=== PATIENT | female | born 1985 | race Caucasian/White ===

== ENCOUNTER 2017-06-29 09:04 | Emergency (ER) | payer OTHER, SELFPAY ==
[2017-06-29 09:05] VITALS: BP 108/75; PULSE 71; RESP 18; TEMP 37; O2SAT 100; BMI 34.9
--- NOTE | 2017-06-29 09:51 | ED.ABDPAIN ---
HPI - Abdominal Pain General Chief Complaint: Abdominal Pain Stated Complaint: IUD MISPLACED Time Seen by Provider: 06/29/17 09:18 Source: patient and family Mode of arrival: ambulatory Limitations: no limitations History of Present Illness HPI narrative: 32F hx fibromyalgia has sharp pelvic pain for 1 day. Has IUD in place, had intercourse night prior and felt a very sharp pain and since then has had persistent severe pelvic pain worse with walking, moving. No vaginal bleeding or significant discharge. States that normally able to feel string, but after event was unable to. No nausea, vomiting. Related Data Home Medications Medication Instructions Recorded Confirmed ibuprofen 400 mg PO Q6-8H PRN 06/29/17 06/29/17 pregabalin [Lyrica] See Label Instructions .ROUTE 06/29/17 06/29/17 .COMPLEX Allergies Allergy/AdvReac Type Severity Reaction Status Date / Time Penicillins [PENICILLINS] Allergy Intermediate Hives Verified 06/29/17 09:27 Review of Systems Constitutional Denies chills, Denies fever(s), Denies lethargy and Denies weakness Cardiovascular Denies chest pain, Denies irregular heart rhythm, Denies lightheadedness, Denies palpitations, Denies dyspnea, Denies dyspnea on exertion and Denies orthopnea Respiratory Denies cough, Denies dyspnea, Denies dyspnea on exertion and Denies wheezing Gastrointestinal Gastrointestinal: Denies abdominal pain, Denies change in bowel habits, Denies diarrhea, Denies nausea and Denies vomiting Genitourinary Denies abnormal vaginal bleeding and Reports pelvic pain Neurologic Denies weakness Endocrine Denies palpitations Allergic/Immunologic Denies wheezing [facility] Social History Smoking Status: Never smoker Exam Initial Vital Signs Initial Vital Signs: Vital Signs Temperature 98.6 F 06/29/17 09:05 Pulse Rate 71 06/29/17 09:05 Respiratory Rate 18 06/29/17 09:05 Blood Pressure 108/75 06/29/17 09:05 Pulse Oximetry 100 06/29/17 09:05 Const General: cooperative and well developed Nutritional Appearance: well nourished Orientation: alert, awake, oriented x3 and not confused Neck Neck: normal visual inspection, trachea midline, No lymphadenopathy, No midline deformity and No JVD Lymphatic: No lymphedema Chest Chest: normal inspection of the chest Resp Effort & Inspection: normal respiratory effort, able to speak in complete sentences, no respiratory distress and no use of accessory muscles Auscultation: clear to auscultation bilaterally, no rales, no rhonchi and no wheezes Cardio Rate: regular rate Rhythm: regular rhythm Heart Sounds: no click, no gallops, no murmurs and no rubs Pulses: normal peripheral pulses GI Inspection: non-distended Palpation: soft, no hepatosplenomegaly, guarding, No pulsatile mass and tender (suprapubic severe tenderness with rebound tenderness) Auscultation: normal bowel sounds Rectal Exam: visual inspection normal External Female Exam: external appearance normal Speculum Exam - Vagina: normal appearance of the vagina, normal vaginal discharge and other (IUD string tucked into cervix) Speculum Exam - Cervix: cervical tenderness Bimanual Exam- Vagina & Uterus: cervical tenderness Neuro General: alert, oriented x3, gait normal and no focal motor deficits Speech: speech normal Course Orders Ordered: ED Orders 06/29/17 09:51 US pelvic complete Stat 06/29/17 10:44 Complete Blood Count AUTO DIFF Stat Comprehensive Metabolic Panel Stat Partial Thromboplastin Time Stat Test Serum,Qual Stat Prothrombin Time INR Stat Discontinued Medications Sodium Chloride (Normal Saline 0.9%) 1,000 mls @ 1,000 mls/hr IV BOLUS ONE Stop: 06/29/17 10:51 Last Infusion: 06/29/17 12:29 Dose: 0 mls/hr Admin: 06/29/17 10:32 Dose: 1,000 mls/hr Oxycodone/Acetaminophen (Percocet 5/325) 1 tab PO NOW ONE Stop: 06/29/17 10:00 Last Admin: 06/29/17 10:33 Dose: 1 tab Vital Signs - 8 hr 06/29/17 09:05 06/29/17 11:06 06/29/17 12:11 Temperature 98.6 F Pulse Rate 71 67 65 Respiratory Rate 18 14 12 Blood Pressure 108/75 Blood Pressure [Right Arm] 106/71 105/68 Pulse Oximetry 100 99 100 MDM - Abdominal Pain Lab Data Result diagrams: 06/29/17 10:44 06/29/17 10:44 Lab Results 06/29/17 06/29/17 06/29/17 Range/Units 10:44 10:44 10:44 WBC 5.9 (4.5-11.0) X10^3/uL RBC 4.89 (4.0-5.2) X10^6/uL Hgb 13.9 (12.0-16.0) g/dL Hct 40.7 (36-46) % MCV 83.3 (80-100) fL MCH 28.3 (26-34) PG MCHC 34.0 (30-36) % RDW 14.2 (11.6-14.8) % Plt Count 119 L (150-400) X10^3/uL Neut % (Auto) 68.7 (50-75) % Lymph % (Auto) 22.3 L (25-40) % [place] % (Auto) 7.7 (3-14) % Eos % (Auto) 1.0 L (2-4) % Baso % (Auto) 0.3 (0-2) % Neut # (Auto) 4000 (0234-2952) /uL PT 12.1 (10.1-12.7) SECONDS INR 1.1 (0.9-1.3) APTT 29 (26.4-36.2) SECONDS Sodium 142 (137-145) mmol/L Potassium 4.1 (3.4-5.1) mmol/L Chloride 107.0 (98-107) mmol/L Carbon Dioxide 26.0 (22-32) mmol/L BUN 13.0 (7-17) mg/dL Creatinine 0.70 (0.52-1.04) mg/dL Estimated GFR > 60.0 (>60) mL/min BUN/Creatinine Ratio 18.6 (6-22) Glucose 96 (70-100) mg/dL Calcium 8.9 (8.4-10.2) mg/dL Total Bilirubin 0.5 (0.2-1.3) mg/dL AST 77 H (14-36) IU/L ALT 27 (9-52) IU/L Alkaline Phosphatase 49 (38-126) U/L Total Protein 6.8 (6.3-8.2) g/dL Albumin 4.0 (3.5-5.0) g/dL Globulin 2.8 (1.7-4.1) g/dL Albumin/Globulin Ratio 1.4 (1.0-2.8) Serum , Qual (Negative) 06/29/17 Range/Units 10:44 WBC (4.5-11.0) X10^3/uL RBC (4.0-5.2) X10^6/uL Hgb (12.0-16.0) g/dL Hct (36-46) % MCV (80-100) fL MCH (26-34) PG MCHC (30-36) % RDW (11.6-14.8) % Plt Count (150-400) X10^3/uL Neut % (Auto) (50-75) % Lymph % (Auto) (25-40) % [place] % (Auto) (3-14) % Eos % (Auto) (2-4) % Baso % (Auto) (0-2) % Neut # (Auto) (8436-9213) /uL PT (10.1-12.7) SECONDS INR (0.9-1.3) APTT (26.4-36.2) SECONDS Sodium (137-145) mmol/L Potassium (3.4-5.1) mmol/L Chloride (98-107) mmol/L Carbon Dioxide (22-32) mmol/L BUN (7-17) mg/dL Creatinine (0.52-1.04) mg/dL Estimated GFR (>60) mL/min BUN/Creatinine Ratio (6-22) Glucose (70-100) mg/dL Calcium (8.4-10.2) mg/dL Total Bilirubin (0.2-1.3) mg/dL AST (14-36) IU/L ALT (9-52) IU/L Alkaline Phosphatase (38-126) U/L Total Protein (6.3-8.2) g/dL Albumin (3.5-5.0) g/dL Globulin (1.7-4.1) g/dL Albumin/Globulin Ratio (1.0-2.8) Serum , Qual Negative (Negative) Imaging Data US - abdomen: Radiologist's impression: Patient: Isadora FARMER RMR#: [id number] : 1985Acct:[id number] Age/Sex: te of Service: 06/29/17 Loc: ED Accession Number: [id number] Procedure: US pelvic complete Ordering Provider: Bisi Christian M.D. PROCEDURE: US PELVIC COMPLETE INDICATIONS: PAIN; CHECK IUD PLACEMENT TECHNIQUE: Real-time scanning was performed of the pelvic organs, with image documentation. Additional endovaginal scanning was necessary due to incomplete visualization of the adnexal and endometrial structures by transabdominal scanning. COMPARISON: None. FINDINGS: Transabdominal scanning: Limited scanning through the kidneys shows no hydronephrosis. Complex free fluid is noted in the pelvis adjacent to the right adnexa. Endovaginal scanning: Uterus: Uterus is normal in size at 10.1 x 4.3 x 6.5 cm. cm. The endometrium measures 11.1 mm in combined thickness. Intrauterine device is suboptimally visualized. Intrauterine device appears grossly normal in position. Ovaries: Right adnexa measures 6.7 x 5.6 x 5.6 cm. There is a complex 5.5 x 5.0 x 5.1 cm right adnexal mass. Lesion has a 4.9 x 3.1 x 4.5 cm solid component. Doppler evaluation demonstrates no definite vascularity within the solid component. The may represent hemorrhagic clot. Left adnexal is not visualized and cannot be evaluated. IMPRESSION: 1. Intrauterine device noted. Intrauterine device is suboptimally visualized, but is grossly normal in appearance. 2. Complex 5.5 x 5.0 x 5.1 cm right adnexal mass may represent hemorrhagic clot, however finding is nonspecific and other etiologies including endometrioma and ectopic cannot be completely excluded. Recommend correlation with test and repeat pelvic ultrasound in 4 days 6 weeks to ensure resolution of the finding. 3. Small amount of complex fluid in the lower pelvis adjacent to right adnexa concerning for hemorrhage. 4. Left adnexa not visualized and cannot be evaluated. Dictated by: Lucinda Chaudhary MD, PhD on 06/29/2017 at 10:08 Approved by: Lucinda Chaudhary MD, PhD on 06/29/2017 at 10:14 [facility] Narrative Medical decision making narrative: Patient signficantly tender in pelvic area. Bedside US performed, no significant amount of free fluid. IUD appears midline in uterus. No free fluid in RUQ or LUQ Speculum exam showed tucked in strings. Used hemostat to reposition strings. Sent patient to Radiology for comprehensive US. US positive for hemorrhagic cyst with small amount of bleeding. Discussed results with patient and she stated that she does have a history of hemorrhagic cysts. Her clinical presentation is consistent with bleeding hemorrhagic ovarian cysts secondary to intercourse, and is not likely related to her IUD. Labs reviewed. No acute abnormalities requiring urgent intervention at this time. Patient is stable for discharge. Discharge Plan Departure Patient Disposition: Home, Self-Care Clinical Impression: Hemorrhagic cyst of ovary Discharge Date/Time: 06/29/17 12:31 Interventions: ED Discharge Assessment Last Done: 06/29/17 12:26 Instructions: Ovarian Cyst Activity Restrictions/Additional Instructions: Pelvic rest for 48 hours. Maintain adequate hydration. Please follow up with your primary care provider. NSAIDs for pain. Prescriptions: No Action pregabalin [Lyrica] 25 mg Capsule See Label Instructions .ROUTE .COMPLEX RF: 0 ibuprofen 200 mg Tablet 400 mg PO Q6-8H PRN (Reason: Menstrual Cramps) RF: 0
--- NOTE | 2017-06-29 09:57 | ED_ITS ---
HPI - Abdominal Pain General Chief Complaint: Abdominal Pain Stated Complaint: IUD MISPLACED Time Seen by Provider: 06/29/17 09:18 Source: patient and family Mode of arrival: ambulatory Limitations: no limitations History of Present Illness HPI narrative: 32F hx fibromyalgia has sharp pelvic pain for 1 day. Has IUD in place, had intercourse night prior and felt a very sharp pain and since then has had persistent severe pelvic pain worse with walking, moving. No vaginal bleeding or significant discharge. States that normally able to feel string, but after event was unable to. No nausea, vomiting. Related Data Home Medications Medication Instructions Recorded Confirmed ibuprofen 400 mg PO Q6-8H PRN 06/29/17 06/29/17 pregabalin [Lyrica] See Label Instructions .ROUTE 06/29/17 06/29/17 .COMPLEX Allergies Allergy/AdvReac Type Severity Reaction Status Date / Time Penicillins [PENICILLINS] Allergy Intermediate Hives Verified 06/29/17 09:27 Review of Systems Constitutional Denies chills, Denies fever(s), Denies lethargy and Denies weakness Cardiovascular Denies chest pain, Denies irregular heart rhythm, Denies lightheadedness, Denies palpitations, Denies dyspnea, Denies dyspnea on exertion and Denies orthopnea Respiratory Denies cough, Denies dyspnea, Denies dyspnea on exertion and Denies wheezing Gastrointestinal Gastrointestinal: Denies abdominal pain, Denies change in bowel habits, Denies diarrhea, Denies nausea and Denies vomiting Genitourinary Denies abnormal vaginal bleeding and Reports pelvic pain Neurologic Denies weakness Endocrine Denies palpitations Allergic/Immunologic Denies wheezing [facility] Social History Smoking Status: Never smoker Exam Initial Vital Signs Initial Vital Signs: Vital Signs Temperature 98.6 F 06/29/17 09:05 Pulse Rate 71 06/29/17 09:05 Respiratory Rate 18 06/29/17 09:05 Blood Pressure 108/75 06/29/17 09:05 Pulse Oximetry 100 06/29/17 09:05 Const General: cooperative and well developed Nutritional Appearance: well nourished Orientation: alert, awake, oriented x3 and not confused Neck Neck: normal visual inspection, trachea midline, No lymphadenopathy, No midline deformity and No JVD Lymphatic: No lymphedema Chest Chest: normal inspection of the chest Resp Effort & Inspection: normal respiratory effort, able to speak in complete sentences, no respiratory distress and no use of accessory muscles Auscultation: clear to auscultation bilaterally, no rales, no rhonchi and no wheezes Cardio Rate: regular rate Rhythm: regular rhythm Heart Sounds: no click, no gallops, no murmurs and no rubs Pulses: normal peripheral pulses GI Inspection: non-distended Palpation: soft, no hepatosplenomegaly, guarding, No pulsatile mass and tender ( suprapubic severe tenderness with rebound tenderness) Auscultation: normal bowel sounds Rectal Exam: visual inspection normal External Female Exam: external appearance normal Speculum Exam - Vagina: normal appearance of the vagina, normal vaginal discharge and other (IUD string tucked into cervix) Speculum Exam - Cervix: cervical tenderness Bimanual Exam- Vagina & Uterus: cervical tenderness Neuro General: alert, oriented x3, gait normal and no focal motor deficits Speech: speech normal Course Orders Ordered: ED Orders 06/29/17 09:51 US pelvic complete Stat 06/29/17 10:44 Complete Blood Count AUTO DIFF Stat Comprehensive Metabolic Panel Stat Partial Thromboplastin Time Stat Test Serum,Qual Stat Prothrombin Time INR Stat Discontinued Medications Sodium Chloride (Normal Saline 0.9%) 1,000 mls @ 1,000 mls/hr IV BOLUS ONE Stop: 06/29/17 10:51 Last Infusion: 06/29/17 12:29 Dose: 0 mls/hr Admin: 06/29/17 10:32 Dose: 1,000 mls/hr Oxycodone/Acetaminophen (Percocet 5/325) 1 tab PO NOW ONE Stop: 06/29/17 10:00 Last Admin: 06/29/17 10:33 Dose: 1 tab Vital Signs - 8 hr 06/29/17 09:05 06/29/17 11:06 06/29/17 12:11 Temperature 98.6 F Pulse Rate 71 67 65 Respiratory Rate 18 14 12 Blood Pressure 108/75 Blood Pressure [Right Arm] 106/71 105/68 Pulse Oximetry 100 99 100 MDM - Abdominal Pain Lab Data Result diagrams: 06/29/17 10:44 06/29/17 10:44 Lab Results 06/29/17 06/29/17 06/29/17 Range/Units 10:44 10:44 10:44 WBC 5.9 (4.5-11.0) X10^3/uL RBC 4.89 (4.0-5.2) X10^6/uL Hgb 13.9 (12.0-16.0) g/dL Hct 40.7 (36-46) % MCV 83.3 (80-100) fL MCH 28.3 (26-34) PG MCHC 34.0 (30-36) % RDW 14.2 (11.6-14.8) % Plt Count 119 L (150-400) X10^3/uL Neut % (Auto) 68.7 (50-75) % Lymph % (Auto) 22.3 L (25-40) % [place] % (Auto) 7.7 (3-14) % Eos % (Auto) 1.0 L (2-4) % Baso % (Auto) 0.3 (0-2) % Neut # (Auto) 4000 (0706-9543) /uL PT 12.1 (10.1-12.7) SECONDS INR 1.1 (0.9-1.3) APTT 29 (26.4-36.2) SECONDS Sodium 142 (137-145) mmol/L Potassium 4.1 (3.4-5.1) mmol/L Chloride 107.0 (98-107) mmol/L Carbon Dioxide 26.0 (22-32) mmol/L BUN 13.0 (7-17) mg/dL Creatinine 0.70 (0.52-1.04) mg/dL Estimated GFR > 60.0 (>60) mL/min BUN/Creatinine Ratio 18.6 (6-22) Glucose 96 (70-100) mg/dL Calcium 8.9 (8.4-10.2) mg/dL Total Bilirubin 0.5 (0.2-1.3) mg/dL AST 77 H (14-36) IU/L ALT 27 (9-52) IU/L Alkaline Phosphatase 49 (38-126) U/L Total Protein 6.8 (6.3-8.2) g/dL Albumin 4.0 (3.5-5.0) g/dL Globulin 2.8 (1.7-4.1) g/dL Albumin/Globulin Ratio 1.4 (1.0-2.8) Serum , Qual (Negative) 06/29/17 Range/Units 10:44 WBC (4.5-11.0) X10^3/uL RBC (4.0-5.2) X10^6/uL Hgb (12.0-16.0) g/dL Hct (36-46) % MCV (80-100) fL MCH (26-34) PG MCHC (30-36) % RDW (11.6-14.8) % Plt Count (150-400) X10^3/uL Neut % (Auto) (50-75) % Lymph % (Auto) (25-40) % [place] % (Auto) (3-14) % Eos % (Auto) (2-4) % Baso % (Auto) (0-2) % Neut # (Auto) (6485-4077) /uL PT (10.1-12.7) SECONDS INR (0.9-1.3) APTT (26.4-36.2) SECONDS Sodium (137-145) mmol/L Potassium (3.4-5.1) mmol/L Chloride (98-107) mmol/L Carbon Dioxide (22-32) mmol/L BUN (7-17) mg/dL Creatinine (0.52-1.04) mg/dL Estimated GFR (>60) mL/min BUN/Creatinine Ratio (6-22) Glucose (70-100) mg/dL Calcium (8.4-10.2) mg/dL Total Bilirubin (0.2-1.3) mg/dL AST (14-36) IU/L ALT (9-52) IU/L Alkaline Phosphatase (38-126) U/L Total Protein (6.3-8.2) g/dL Albumin (3.5-5.0) g/dL Globulin (1.7-4.1) g/dL Albumin/Globulin Ratio (1.0-2.8) Serum , Qual Negative (Negative) Imaging Data US - abdomen: Radiologist's impression: Patient: Isadora FARMER RMR#: [id number] : 1985Acct:[id number] Age/Sex: te of Service: 06/29/17 Loc: ED Accession Number: [id number] Procedure: US pelvic complete Ordering Provider: Bisi Christian M.D. PROCEDURE: US PELVIC COMPLETE INDICATIONS: PAIN; CHECK IUD PLACEMENT TECHNIQUE: Real-time scanning was performed of the pelvic organs, with image documentation. Additional endovaginal scanning was necessary due to incomplete visualization of the adnexal and endometrial structures by transabdominal scanning. COMPARISON: None. FINDINGS: Transabdominal scanning: Limited scanning through the kidneys shows no hydronephrosis. Complex free fluid is noted in the pelvis adjacent to the right adnexa. Endovaginal scanning: Uterus: Uterus is normal in size at 10.1 x 4.3 x 6.5 cm. cm. The endometrium measures 11.1 mm in combined thickness. Intrauterine device is suboptimally visualized. Intrauterine device appears grossly normal in position. Ovaries: Right adnexa measures 6.7 x 5.6 x 5.6 cm. There is a complex 5.5 x 5.0 x 5.1 cm right adnexal mass. Lesion has a 4.9 x 3.1 x 4.5 cm solid component. Doppler evaluation demonstrates no definite vascularity within the solid component. The may represent hemorrhagic clot. Left adnexal is not visualized and cannot be evaluated. IMPRESSION: 1. Intrauterine device noted. Intrauterine device is suboptimally visualized, but is grossly normal in appearance. 2. Complex 5.5 x 5.0 x 5.1 cm right adnexal mass may represent hemorrhagic clot , however finding is nonspecific and other etiologies including endometrioma and ectopic cannot be completely excluded. Recommend correlation with test and repeat pelvic ultrasound in 4 days 6 weeks to ensure resolution of the finding. 3. Small amount of complex fluid in the lower pelvis adjacent to right adnexa concerning for hemorrhage. 4. Left adnexa not visualized and cannot be evaluated. Dictated by: Lucinda Chaudhary MD, PhD on 06/29/2017 at 10:08 Approved by: Lucinda Chaudhary MD, PhD on 06/29/2017 at 10:14 [facility] Narrative Medical decision making narrative: Patient signficantly tender in pelvic area. Bedside US performed, no significant amount of free fluid. IUD appears midline in uterus. No free fluid in RUQ or LUQ Speculum exam showed tucked in strings. Used hemostat to reposition strings. Sent patient to Radiology for comprehensive US. US positive for hemorrhagic cyst with small amount of bleeding. Discussed results with patient and she stated that she does have a history of hemorrhagic cysts. Her clinical presentation is consistent with bleeding hemorrhagic ovarian cysts secondary to intercourse, and is not likely related to her IUD. Labs reviewed. No acute abnormalities requiring urgent intervention at this time. Patient is stable for discharge. Discharge Plan Departure Patient Disposition: Home, Self-Care Clinical Impression: Hemorrhagic cyst of ovary Discharge Date/Time: 06/29/17 12:31 Interventions: ED Discharge Assessment Last Done: 06/29/17 12:26 Instructions: Ovarian Cyst Activity Restrictions/Additional Instructions: Pelvic rest for 48 hours. Maintain adequate hydration. Please follow up with your primary care provider. NSAIDs for pain. Prescriptions: No Action pregabalin [Lyrica] 25 mg Capsule See Label Instructions .ROUTE .COMPLEX RF: 0 ibuprofen 200 mg Tablet 400 mg PO Q6-8H PRN (Reason: Menstrual Cramps) RF: 0
[2017-06-29] MEDS: SODIUM CHLORIDE 0.9% 1,000 ML 1000 ML IV (10:32)
[2017-06-29] MEDS: OXYCODONE/ACETAMINOPHEN 5/325 TABLET 1 TAB PO (10:33)
--- NOTE | 2017-06-29 10:42 | PC.NURSE ---
Pt had intercourse last night and began having sharp cramping pain immediately afterwards. She had a Mirena IUD placed last night. Had partner check for string and it could not be located.
[2017-06-29 11:06] VITALS: BP 106/71; PULSE 67; RESP 14; O2SAT 99
[2017-06-29 11:26] LABS: Add Manual Diff / Slide Review NO; Basophils Percent Auto 0.3 % (0-2); Hematocrit 40.7 % (36-46); Hemoglobin 13.9 g/dL (12.0-16.0); Lymphocytes Percent Auto 22.3 % (25-40); Mean Corpuscular Hemoglobin 28.3 PG (26-34); Mean Corpuscular Volume 83.3 fL (80-100); Monocytes Percent Auto 7.7 % (3-14); Neutrophils Absolute Auto 4000 /uL (3000-5900); Neutrophils Percent Auto 68.7 % (50-75); Platelet Count 119 X10^3/uL (150-400); Red Blood Cell Count 4.89 X10^6/uL (4.0-5.2); Red Cell Distribution Width 14.2 % (11.6-14.8); White Blood Cell Count 5.9 X10^3/uL (4.5-11.0)
[2017-06-29 11:31] LABS: INR 1.1 (0.9-1.3); Prothrombin Time 12.1 SECONDS (10.1-12.7)
[2017-06-29 11:32] LABS: Alanine Aminotransferase 27 IU/L (9-52); Albumin Globulin Ratio 1.4 (1.0-2.8); Alkaline Phosphatase 49 U/L (38-126); Aspartate Aminotransferase 77 IU/L (14-36); BUN Creatinine Ratio 18.6 (6-22); Bilirubin Total 0.5 mg/dL (0.2-1.3); Calcium 8.9 mg/dL (8.4-10.2); Estimated Glomerular Filt Rate > 60.0 mL/min (>60); Globulin 2.8 g/dL (1.7-4.1); Glucose 96 mg/dL (70-100); HEMOLYSIS 25 (0-50); Potassium 4.1 mmol/L (3.4-5.1); Sodium 142 mmol/L (137-145); Total Protein 6.8 g/dL (6.3-8.2)
[2017-06-29 11:34] LABS: PTT Partial Thromboplastin Tim 29 SECONDS (26.4-36.2); Pregnancy Test Serum,Qual Negative (Negative)
[2017-06-29 12:11] VITALS: BP 105/68; PULSE 65; RESP 12; O2SAT 100
--- NOTE | 2017-06-29 21:37 | PC.NURSE ---
Late entry: stand by assist for Dr. Christian during pelvic exam. Patient tolerated procedure well.
== END 2017-06-29 12:31 | disposition home or self-care (01) ==
PROVIDERS: Emergency Provider Student in an Organized Health Care Education/Training Program
DX: N83.209 Unspecified ovarian cyst, unspecified side (principal)
CPT/HCPCS: 36591; 76830; 76856; 80053; 81003; 81025; 84703; 85025; 85610; 85730; 96360; 96361; 99283; 99284